=== PATIENT | female | born 1970 | race Caucasian/White ===

== ENCOUNTER → 2017-02-15 | Outpatient (CLI) | payer OTHER ==
--- NOTE | 2017-02-15 13:24 | KCIC ---
Bilateral digital screening mammograms: Reason for examination: Routine screening. Comparison is made to previous studies dated back to 02/12/2014. Interpretation was made with the benefit of CAD. The skin and nipples show no abnormalities. No abnormal axillary lymph nodes are seen. The breast parenchyma is heterogeneously dense. (Breast density: Category C.) There are no dominant masses, suspicious calcifications or architectural distortion. Impression: No evidence of malignancy. Recommend routine screening. Your patient's mammogram demonstrates that she has dense breast tissue (breast density category C or D), which could hide abnormalities, and if she has other risk factors for breast cancer that have been identified, she might benefit from supplemental screening tests that may be suggested by you as her ordering physician. Dense breast tissue, in and of itself, is a relatively common condition. Therefore, this information is not provided to cause undue concern, but rather to raise your awareness and to promote discussion with your patient regarding the presence of other risk factors, in addition to dense breast tissue. Your patient's mammography results will be sent to her. BI-RAD Category 1: Negative. "Our facility is accredited by the [employer] Mammography [employer]." This patient's information has been entered into a reminder system for the patient to be notified with the results of her examination and a target date for the next mammogram. Electronically signed by: Xochitl Trevino MD (02/15/2017 1:20 PM)
== END | disposition home or self-care (01) ==
LOC: KCIC MAMMO 09:42
PROVIDERS: ATTEND Family Medicine
DX: Z12.31 Encounter for screening mammogram for malignant neoplasm of breast (principal)
CPT/HCPCS: G0202; 77067

== ENCOUNTER 2018-01-12 10:42 | Day surgery (SDC) | payer OTHER ==
[~2018-01-12 10:42] MED LIST: DEXAMETHASONE SOD PHOS 20 MG/5 ML VIAL.; LIDOCAINE 1% PF 2 ML VIAL. ID; MIDAZOLAM HCL/PF 2 MG/2 ML VIAL.; MORPHINE SULFATE 2 MG/ML DISP.SYRIN. IV; ONDANSETRON PF 4 MG/2 ML VIAL.; ONDANSETRON PF 4 MG/2 ML VIAL. IV; PROCHLORPERAZINE 10 MG/2 ML VIAL. IV; PROPOFOL 20 ML IV; SEVOFLURANE 31 TO 60 MINUTES. IH; fentaNYL PF VIAL 100 MCG/2 ML VIAL; fentaNYL PF VIAL 100 MCG/2 ML VIAL IV
[2018-01-12] MEDS: IV RINGERS,LACTATED 1000ML 1,000 ML IV (11:12)
[2018-01-12] MEDS ORDERED: KETOROLAC 30 MG/ML INJ FOR OR. INJ (11:30)
[2018-01-12] MEDS: BUPIVACAINE-EPI 0.25%-1:200000 50 ML VIAL. (11:37)
[2018-01-12 12:02] LABS: NEG OBC UR NEG; POS OBC UR POS; U PREG PATIENT NEGATIVE (NEG)
[2018-01-12] MEDS: oxyCODONE/APAP 5/325 1 TAB TABLET PO (12:45)
== END 2018-01-12 13:17 | disposition home or self-care (01) ==
LOC: SURG 10:42
DX: R19.05 Periumbilic swelling, mass or lump (principal); E78.00 Pure hypercholesterolemia, unspecified; Z79.899 Other long term (current) drug therapy; Z98.890 Other specified postprocedural states; Z88.0 Allergy status to penicillin; Z88.8 Allergy status to other drugs, medicaments and biological substances
CPT/HCPCS: 22900; 81025; 88305; J1100; J1885; J1956; J2250; J2405; J2704; J3010

== ENCOUNTER → 2018-03-01 | Outpatient (CLI) | payer OTHER | END | disposition home or self-care (01) | LOC: KCIC MAMMO 14:28 | DX: Z12.31 Encounter for screening mammogram for malignant neoplasm of breast (principal); E78.00 Pure hypercholesterolemia, unspecified; Z79.899 Other long term (current) drug therapy | CPT/HCPCS: 77067 ==

== ENCOUNTER 2018-05-12 07:29 | Emergency (ER) | payer OTHER ==
[~2018-05-12] VITALS: Ht 165.1 cm; Wt 65.8 kg
[~2018-05-12 07:29] MED LIST changes: -DEXAMETHASONE SOD PHOS 20 MG/5 ML VIAL.; +FLUT9.9S NS; -LIDOCAINE 1% PF 2 ML VIAL. ID; -MIDAZOLAM HCL/PF 2 MG/2 ML VIAL.; -MORPHINE SULFATE 2 MG/ML DISP.SYRIN. IV; +NORG1TAB34 PO; -ONDANSETRON PF 4 MG/2 ML VIAL.; -ONDANSETRON PF 4 MG/2 ML VIAL. IV; +OXYC-323 PO; -PROCHLORPERAZINE 10 MG/2 ML VIAL. IV; -PROPOFOL 20 ML IV; -SEVOFLURANE 31 TO 60 MINUTES. IH; +SIMV40TA3 PO; -fentaNYL PF VIAL 100 MCG/2 ML VIAL; -fentaNYL PF VIAL 100 MCG/2 ML VIAL IV
[2018-05-12 07:50] VITALS: BP 155/78
--- NOTE | 2018-05-12 08:28 | PHYS DOC ---
Past Medical History Past Medical History: Anxiety, High Cholesterol Past Surgical History: Other Additional Past Surgical Histo: "belly button removed" Alcohol Use: Occasionally Drug Use: None Adult General Chief Complaint Chief Complaint: ALLERGIC REACTION HPI HPI Patient is a 48 year old female who presents with medication side effect. The patient was recently started on Zoloft. She took her first dose last night around 10 PM. After couple hours, the patient began to have some jittery feeling. She had some diaphoresis. Her reported that her pupils were dilated. She also had onset of some gastrointestinal symptoms including some abdominal cramping and diarrhea. Patient became concerned when she read on the Internet that this could represent a life-threatening medication allergies so she came to the emergency department. On arrival to the ER, most of her symptoms had resolved. She denied any acute complaints. Review of Systems Review of Systems Constitutional: Denies fever or chills Eyes: Denies change in visual acuity HENT: Denies nasal congestion Respiratory: Denies cough or shortness of breath Cardiovascular: No additional information not addressed in HPI GI: Denies abdominal pain : Denies dysuria or hematuria Musculoskeletal: Denies back pain or joint pain Integument: Denies rash or skin lesions Neurologic: Denies headache All other systems were reviewed and found to be within normal limits, except as documented in this note. Allergies Allergies Allergies Coded Allergies Type Severity Reaction Last Updated Verified Penicillins Allergy Intermediate Rash 01/12/18 Yes aspirin Adverse Reaction Intermediate Rash 01/12/18 Yes Physical Exam Physical Exam Constitutional: Well developed, well nourished, no acute distress, non-toxic appearance HENT: Normocephalic, atraumatic, bilateral external ears normal, oropharynx moist Eyes: PERRLA, EOMI, conjunctiva normal Neck: Normal range of motion, no tenderness Cardiovascular:Heart rate regular rhythm Lungs & Thorax: Bilateral breath sounds clear to auscultation Abdomen: Bowel sounds normal, soft Skin: Warm Back: No tenderness Extremities: No tenderness Neurologic: Alert and oriented X 3 Psychologic: Affect normal Current Patient Data Vital Signs Vital Signs Date Time Temp Pulse Resp B/P (MAP) Pulse Ox O2 Delivery O2 Flow Rate FiO2 05/12/18 07:50 98.5 75 16 155/78 (103) 100 Room Air 98.5 EKG EKG [] Radiology/Procedures Radiology/Procedures [] Course & Med Decision Making Course & Med Decision Making Pertinent Labs and Imaging studies reviewed. (See chart for details) Patient presents to the ER after having some medication side effects which can be common in the class of medication that she took. Her symptoms are currently resolved. She has no findings of an acute allergic reaction or other acute findings on her physical exam, which is normal. Plan today is for discharge home. I advised that the patient did not actually have an allergy, but rather some medication side effects. Patient states she will not likely continues take his medication. She is encouraged to come back to the ER for any new or worsening symptoms. Otherwise, follow up with primary care doctor. Maxine Disclaimer Maxine Disclaimer This electronic medical record was generated, in whole or in part, using a voice recognition dictation system. Departure Departure Impression: Primary Impression: Medication side effect Disposition: 01 HOME, SELF-CARE Condition: GOOD Patient Instructions: Sertraline tablets Additional Instructions: You have had an adverse medication side effect. Contact your physician to inquire if there is an alternative medication which you may try to treat your symptoms. Stop taking your current medication. Instructions provided are info about a SIMILAR medication in the same class as the one you are taking and with similar side effects. TAE WHITLOCK DO May 12, 2018 08:28
== END 2018-05-12 08:27 | disposition home or self-care (01) ==
LOC: ER 07:29
DX: T43.225A Adverse effect of selective serotonin reuptake inhibitors, initial encounter (principal); R19.7 Diarrhea, unspecified; R10.9 Unspecified abdominal pain; F41.9 Anxiety disorder, unspecified; E78.00 Pure hypercholesterolemia, unspecified; Y92.89 Other specified places as the place of occurrence of the external cause
CPT/HCPCS: 99281

== ENCOUNTER → 2018-05-16 | Outpatient (CLI) | payer OTHER ==
[2018-05-12 07:50] VITALS: BP 155/78
--- NOTE | 2018-05-16 18:18 | KCIC ---
Ultrasound of thyroid gland 05/16/2018 CLINICAL HISTORY: Thyroid nodule. TECHNIQUE: A real-time ultrasound examination of the thyroid gland was performed. Multiple images were obtained. FINDINGS: The thyroid gland is enlarged. The right lobe of thyroid gland measures 4.7 x 1.9 x 1.3 cm in longitudinal, transverse, and AP dimensions. The left lobe of thyroid gland measures 5.0 x 2.2 x 2.4 cm in size. The thyroid gland is heterogeneous consistent with a multinodular goiter. A 5 mm complex nodule is seen within the right aspect of the isthmus. A complex nodule is seen within the mid/lower pole of the left lobe of thyroid gland which measures 2.8 cm in greatest diameter. This corresponds to the patient's palpable abnormality. This is predominantly cystic with internal echoes within it. A solid component is seen along the periphery which measures 8 mm in greatest diameter. Its ultrasound appearance is nonspecific. No additional abnormality is seen. IMPRESSION: Findings consistent with a multinodular goiter. A 2.8 cm complex nodule is seen involving the left lobe of thyroid gland which corresponds to the patient's palpable abnormality. Its ultrasound appearance is nonspecific. This would be amenable to ultrasound-guided fine-needle aspiration if clinically warranted. Electronically signed by: Adam Lloyd MD (05/16/2018 6:15 PM) [id number]
== END | disposition home or self-care (01) ==
LOC: KCIC US 14:29
PROVIDERS: ATTEND Nurse Practitioner Family
DX: E04.1 Nontoxic single thyroid nodule (principal); E78.00 Pure hypercholesterolemia, unspecified; Z79.899 Other long term (current) drug therapy; Z88.0 Allergy status to penicillin; Z88.8 Allergy status to other drugs, medicaments and biological substances
CPT/HCPCS: 76536

== ENCOUNTER → 2019-05-26 | Outpatient (CLI) | payer OTHER ==
[~2019-05-26] MED LIST changes: -NORG1TAB34 PO; +NORG1TAB70 PO; -OXYC-323 PO; +OXYC1TAB15 PO
--- NOTE | 2019-05-27 09:45 | KCIC ---
Thyroid ultrasound 05/26/2019 CLINICAL HISTORY: Follow-up thyroid nodule. TECHNIQUE: A real-time ultrasound examination of the thyroid gland was performed. Multiple images were obtained. FINDINGS: Comparison study is dated 05/16/2018. The thyroid gland is mildly enlarged. The right lobe of the thyroid gland measures 4.8 x 1.9 x 1.4 cm in longitudinal, transverse, and AP dimensions. The left lobe of the thyroid gland measures 3.6 x 1.6 x 1.1 cm in size. The isthmus measures 4 mm in thickness. The thyroid gland is heterogeneous consistent with a multinodular goiter.The 2.8 cm complex nodule seen within the left lobe of thyroid gland seen on the previous examination has decreased in size and now measures 3 mm in greatest diameter. It was reportedly aspirated at an outside facility last year. A 4 mm heterogeneous nodule is seen involving the right aspect of the isthmus which is unchanged from the previous study. No new thyroid nodule or mass is seen. IMPRESSION: Findings are again seen consistent with a multinodular goiter. The 2.8 cm complex nodule within the left lobe of the thyroid gland has decreased in size as discussed above. No new thyroid nodule is seen. Electronically signed by: Adam Lloyd MD (05/27/2019 9:41 AM) [facility]
== END | disposition home or self-care (01) ==
LOC: KCIC US 15:13
PROVIDERS: ATTEND Otolaryngology
DX: E04.2 Nontoxic multinodular goiter (principal)
CPT/HCPCS: 76536

== ENCOUNTER → 2020-04-09 | Outpatient (CLI) | payer OTHER ==
[~2020-04-09] MED LIST changes: +SIMV40TA18 PO; -SIMV40TA3 PO
--- NOTE | 2020-04-09 09:59 | KCIC ---
Bilateral digital screening mammograms: Reason for examination: Routine screening. Comparison is made to previous studies dated back to 02/12/2014. Interpretation was made with the benefit of CAD. The skin and nipples show no abnormalities. No abnormal axillary lymph nodes are seen. The breast parenchyma is heterogeneously dense. (Breast density: Category C.) There are no dominant masses, suspicious calcifications or architectural distortion. Impression: No evidence of malignancy. Recommend routine screening. Your patient's mammogram demonstrates that she has dense breast tissue (breast density category C or D), which could hide abnormalities, and if she has other risk factors for breast cancer that have been identified, she might benefit from supplemental screening tests that may be suggested by you as her ordering physician. Dense breast tissue, in and of itself, is a relatively common condition. Therefore, this information is not provided to cause undue concern, but rather to raise your awareness and to promote discussion with your patient regarding the presence of other risk factors, in addition to dense breast tissue. Your patient's mammography results will be sent to her. BI-RAD Category 1: Negative. "Our facility is accredited by the [employer] Mammography [employer]." This patient's information has been entered into a reminder system for the patient to be notified with the results of her examination and a target date for the next mammogram. Electronically signed by: Xochitl Trevino MD (04/09/2020 9:56 AM) [id number]
== END | disposition home or self-care (01) ==
LOC: KCIC MAMMO 09:13
PROVIDERS: ATTEND Family Medicine
DX: Z12.31 Encounter for screening mammogram for malignant neoplasm of breast (principal)
CPT/HCPCS: 77067

== ENCOUNTER → 2021-02-20 | Outpatient (CLI) | payer OTHER ==
--- NOTE | 2021-02-20 10:59 | KCIC ---
Bilateral digital screening mammograms: Reason for examination: Routine screening. Comparison is made to previous studies dated back to 02/12/2014. Interpretation was made with the benefit of CAD. The skin and nipples show no abnormalities. No abnormal axillary lymph nodes are seen. The breast par enchyma is extremely dense. (Breast density: Category D.) There are no dominant masses, suspicious ca lcifications or architectural distortion. Impression: No evidence of malignancy. Recommend routine screening. Your patient's mammogram demonstrates that she has dense breast tissue (breast density category C or D), which could hide abnormalities, and if she has other risk factors for breast cancer that have bee n identified, she might benefit from supplemental screening tests that may be suggested by you as her ordering physician. Dense breast tissue, in and of itself, is a relatively common condition. Therefo re, this information is not provided to cause undue concern, but rather to raise your awareness and t o promote discussion with your patient regarding the presence of other risk factors, in addition to d ense breast tissue. Your patient's mammography results will be sent to her. BI-RAD Category 1: Negative. "Our facility is accredited by the [employer] Mammography [employer]." This patient's information has been entered into a reminder system for the patient to be notified wit h the results of her examination and a target date for the next mammogram. Electronically signed by: Xochitl Trevino MD (02/20/2021 10:56 AM) [email or web address]
== END ==
LOC: KCIC MAMMO 08:46
PROVIDERS: ATTEND Internal Medicine
DX: Z12.31 Encounter for screening mammogram for malignant neoplasm of breast (principal)
CPT/HCPCS: 77067